=== PATIENT | male | born 1965 | race Two or more races ===

== ENCOUNTER 2022-10-21 14:51 | Emergency (ER) | payer OTHER ==
[~2022-10-21] VITALS: Ht 182.9 cm; Wt 119.3 kg
[2022-10-21] MEDS ORDERED: NIFEDIPINE20 MG (15:26)
[2022-10-21] MEDS ORDERED: KAPVAY0.1 MG (15:26)
[2022-10-21] MEDS ORDERED: COLCHICINE0.6 M1 (15:26)
== END 2022-10-21 22:03 | disposition home or self-care (01) ==
LOC: ER 14:51
DX: R13.10 Dysphagia, unspecified (principal); M54.2 Cervicalgia
CPT/HCPCS: 36415; 70491; Q9965